=== PATIENT | female | born 1970 ===

== ENCOUNTER 2018-10-28 13:08 | Outpatient (CLI) | payer OTHER | END 2018-10-28 13:43 | disposition home or self-care (01) | LOC: RAD 501 13:08 | DX: M25.512 Pain in left shoulder (principal); M54.6 Pain in thoracic spine; M54.5 Low back pain ==

== ENCOUNTER 2019-04-14 11:07 | Outpatient (CLI) | payer OTHER | END 2019-04-14 15:00 | disposition home or self-care (01) | LOC: LAB 11:07 | DX: E56.1 Deficiency of vitamin K (principal) ==